=== PATIENT | male | born 1970 | race Caucasian/White ===

== ENCOUNTER 2017-02-26 10:02 | Emergency (ER) | payer BC ==
[2017-02-26 10:15] VITALS: BP 141/93
--- NOTE | 2017-02-26 11:08 | UC ---
Ear Complaint HPI - HPI Summary HPI Summary: TWO WEEKS OF WORSENING LEFT EAR PAIN AND PRESSURE, WORSE DURING THE LAST TWO DAYS. NO SWIMMING. NO FEVER. USES QTIPS. NO DISCHARGE. NO HEARING LOSS. HAS ALLERGIES, TAKES CLARATIN. - History of Current Complaint Chief Complaint: UCGeneralIllness Stated Complaint: EAR PAIN Time Seen by Provider: 02/26/17 10:44 Hx Obtained From: Patient Onset/Duration: Gradual Onset, Lasting Weeks, Worse Since - TWO DAYS Severity Initially: Moderate Severity Currently: Moderate Pain Intensity: 0 Pain Scale Used: 0-10 Numeric Associated Signs/Symptoms: Positive: URI Symptoms. Negative: Discharge, Hearing Loss - Allergies/Home Medications Allergies/Adverse Reactions: Allergies Allergy/AdvReac Type Severity Reaction Status Date / Time Amoxicillin [From Augmentin] Allergy GI Upset Verified 02/26/17 10:07 Clavulanic Acid Allergy GI Upset Verified 02/26/17 10:07 [From Augmentin] SEASONAL ENVIRONMETAL Allergy CONGESTION, Uncoded 02/26/17 10:07 ITCHY WATERY EYES Home Medications: Home Medications Metformin HCl 500 mg PO BID 02/26/17 [History Confirmed 02/26/17] PMH/Surg Hx/FS Hx/Imm Hx Previously Healthy: Yes - Surgical History Surgical History: Yes Surgery Procedure, Year, and Place: 2003 LEFT SHOULDER REPAIR ROTATOR CUFF, [facility] – [place]. 1987 RIGHT KNEE SURGERY, [facility] – [place]. 2003 RIGHT LEG LOWER CALF SURGERY - [facility], OFFICE. 2014 HERNIA- UMBILICUS. [facility] - Family History Known Family History: Positive: Hypertension - father - Social History Occupation: Employed Full-time Lives: With Family Alcohol Use: Occasionally Alcohol Amount: beer Substance Use Type: None Smoking Status (MU): Former Smoker Type: Cigarettes Amount Used/How Often: SOCIALLY When Did the Patient Quit Smoking/Using Tobacco: 1994 - Immunization History Most Recent Influenza Vaccination: 2013 Most Recent Tetanus Shot: unknown Review of Systems Constitutional: Negative Skin: Negative Eyes: Negative ENT: Ear Ache - LEFT Respiratory: Negative Cardiovascular: Negative Gastrointestinal: Negative Genitourinary: Negative Motor: Negative Neurovascular: Negative Musculoskeletal: Negative Neurological: Negative Psychological: Negative All Other Systems Reviewed And Are Negative: Yes Physical Exam Triage Information Reviewed: Yes Appearance: Well-Appearing, No Pain Distress, Well-Nourished Vital Signs: Initial Vital Signs Temp 98 F 02/26/17 10:09 Pulse 58 02/26/17 10:09 Resp 18 08/14/17 10:09 BP 141/93 02/26/17 10:09 Pulse Ox 100 02/26/17 10:09 Vital Signs Reviewed: Yes Eye Exam: Normal ENT: Positive: Hearing grossly normal, Pharynx normal, TM dull - LEFT, TM red - LEFT Dental Exam: Normal Neck exam: Normal Neck: Positive: Supple, Nontender, No Lymphadenopathy Respiratory Exam: Normal Respiratory: Positive: Chest non-tender, Lungs clear, Normal breath sounds, No respiratory distress, No accessory muscle use Cardiovascular Exam: Normal Cardiovascular: Positive: RRR, No Murmur, Pulses Normal, Brisk Capillary Refill Abdominal Exam: Normal Musculoskeletal Exam: Normal Musculoskeletal: Positive: Strength Intact Neurological Exam: Normal Psychological Exam: Normal Skin Exam: Normal Ear Complaint Course/Dx - Differential Dx/Diagnosis Differential Diagnosis/HQI/PQRI: Otitis Externa, Otitis Media, Perforated TM, URI Provider Diagnoses: LEFT OTITIS MEDIA Discharge - Discharge Plan Condition: Stable Disposition: HOME Prescriptions: Azithromycin TAB* [Zithromax TAB (Z-MANNY) 250 mg #6 tabs] 250 mg PO DAILY #6 tab Fluticasone NASAL SPRAY 50MCG* [Flonase NASAL SPRAY 50MCG*] 2 spray BOTH NARES DAILY #1 btl Patient Education Materials: Otitis Media (ED) Referrals: Rolando Holman MD [Primary Care Provider] -
== END 2017-02-26 11:00 | disposition home or self-care (01) ==
LOC: UCEAST 10:02
DX: H66.92 Otitis media, unspecified, left ear (principal); Z88.1 Allergy status to other antibiotic agents; Z87.891 Personal history of nicotine dependence
CPT/HCPCS: 99212; G0463

== ENCOUNTER 2017-09-19 09:16 | Emergency (ER) | payer BC ==
[2017-09-19 09:33] VITALS: BP 140/101
--- NOTE | 2017-09-19 10:25 | UC ---
Throat Pain/Nasal Juan HPI - HPI Summary HPI Summary: Pt presents with sinus pain/pressure/congestion for the last 2 weeks. His symptoms seem to be getting worse over the last week. He developed a frontal headache a few days ago that comes and goes. Has not taken anything OTC. Denies fever, chills, cough, SOB, chest pain, abdominal pain. - History of Current Complaint Chief Complaint: UCGeneralIllness Stated Complaint: sinus congestion Time Seen by Provider: 09/19/17 10:04 Hx Obtained From: Patient Severity: Moderate Pain Intensity: 6 Pain Scale Used: 0-10 Numeric - Allergies/Home Medications Allergies/Adverse Reactions: Allergies Allergy/AdvReac Type Severity Reaction Status Date / Time amoxicillin [From Augmentin] Allergy GI Upset Verified 09/19/17 09:25 clavulanic acid Allergy GI Upset Verified 09/19/17 09:25 [From Augmentin] SEASONAL ENVIRONMETAL Allergy CONGESTION, Uncoded 09/19/17 09:25 ITCHY WATERY EYES PMH/Surg Hx/FS Hx/Imm Hx Endocrine History: Diabetes - Surgical History Surgical History: Yes Surgery Procedure, Year, and Place: 2003 [place] R[place] [facility] [place] [facility] [place] RIGHT LEG LOWER CALF SURGERY - [facility], OFFICE. 2014 HERNIA- UMBILICUS. [facility] - Family History Known Family History: Positive: Hypertension - father - Social History Occupation: Employed Full-time Lives: With Family Alcohol Use: Occasionally Alcohol Amount: beer Substance Use Type: None Smoking Status (MU): Former Smoker Type: Cigarettes Amount Used/How Often: SOCIALLY When Did the Patient Quit Smoking/Using Tobacco: 1994 - Immunization History Most Recent Influenza Vaccination: 2013 Most Recent Tetanus Shot: unknown Review of Systems Constitutional: Negative Skin: Negative Eyes: Negative ENT: Nasal Discharge, Sinus Congestion, Sinus Pain/Tenderness Respiratory: Negative Cardiovascular: Negative Gastrointestinal: Negative Neurological: Negative Psychological: Negative All Other Systems Reviewed And Are Negative: Yes Physical Exam - Summary Physical Exam Summary: GENERAL: NAD. WDWN HEENT: NC/AT. Conjunctiva clear without inflammation or discharge. TMs intact , no bulging, erythema, or edema. Nasal mucosa moderately swollen and erythematous with yellow/green discharge. No polyps noted. TTP maxillary and frontal sinus. Posterior oropharynx without exudates, erythema, or tonsillar enlargement. Uvula midline. NECK: Supple without lymphadenopathy CHEST: CTAB. No r/r/w. No accessory muscle use. Breathing comfortably and in no distress. CV: RRR. Without m/r/g. Pulses intact. SKIN: No rash or erythema noted. NEURO: Alert. CN II-XII grossly intact. PSYCH: Age appropriate behavior. Triage Information Reviewed: Yes Vital Signs: Initial Vital Signs Temp 96.4 F 09/19/17 09:27 Pulse 87 09/19/17 09:27 Resp 16 09/19/17 09:27 BP 140/101 09/19/17 09:27 Pulse Ox 97 09/19/17 09:27 Throat Pain/Nasal Course/Dx - Course Course Of Treatment: Sinusitis - he says that he isn't allergic to amoxicillin, but it "doesn't work for him". Says that zpak works the best. - Differential Dx/Diagnosis Provider Diagnoses: Sinusitis Discharge - Discharge Plan Condition: Stable Disposition: HOME Prescriptions: Azithromycin TAB* [Zithromax TAB (Z-MANNY) 250 mg #6 tabs] 2 tab PO .TODAY, THEN 1 DAILY #1 manny Patient Education Materials: Sinusitis (ED) Referrals: Rolando Holman MD [Primary Care Provider] - Additional Instructions: If you develop a fever, shortness of breath, chest pain, new or worsening symptoms - please call your PCP or go to the ED. Your blood pressure was high at todays visit. Please see your primary provider within 4 weeks for recheck and re-evaluation.
== END 2017-09-19 10:43 | disposition home or self-care (01) ==
LOC: UCEAST 09:16
DX: J32.9 Chronic sinusitis, unspecified (principal); E11.9 Type 2 diabetes mellitus without complications; Z79.84 Long term (current) use of oral hypoglycemic drugs; Z88.1 Allergy status to other antibiotic agents; Z87.891 Personal history of nicotine dependence
CPT/HCPCS: 99212; G0463